=== PATIENT | female | born 1950 | race Caucasian/White ===

== ENCOUNTER 2018-05-16 06:30 | Emergency (ER) | payer BC, MEDICARE ==
[~2018-05-16] VITALS: Ht 152.4 cm; Wt 50.9 kg
[2018-05-16] MEDS ORDERED: SYNTHROID0.075 MG PO (06:59)
[2018-05-16] MEDS ORDERED: PRILOSEC OTC20 MG PO (06:59)
[2018-05-16] MEDS ORDERED: DULCOLAX PO (07:00)
[2018-05-16] MEDS ORDERED: MIRALAX17 GM PO (07:00)
[2018-05-16] MEDS ORDERED: ANUSOL-HC SUPPO25 MG RC (09:05)
[2018-05-16] MEDS ORDERED: FLEET ENEM1 BOT/133 RC (09:05)
[2018-05-16 09:09] VITALS: BP 104/70
== END 2018-05-16 09:08 | disposition home or self-care (01) ==
LOC: ED 06:30
DX: K59.00 Constipation, unspecified (principal); E03.9 Hypothyroidism, unspecified; K64.9 Unspecified hemorrhoids; F17.200 Nicotine dependence, unspecified, uncomplicated; K21.9 Gastro-esophageal reflux disease without esophagitis; Z79.899 Other long term (current) drug therapy

== ENCOUNTER → 2019-04-27 | Outpatient (CLI) | payer MEDICARE ==
[~2019-04-27] MED LIST: ANUSOL-HC SUPPO25 MG RC; DULCOLAX PO; FLEET ENEM1 BOT/133 RC; MIRALAX17 GM PO; PRILOSEC OTC20 MG PO; SYNTHROID0.075 MG PO
== END ==
LOC: RAD 08:22 → MAMMO 08:30
DX: R91.8 Other nonspecific abnormal finding of lung field (principal)

== ENCOUNTER → 2019-04-27 | Outpatient (CLI) | payer MEDICARE | LOC: MAMMO 08:18 | DX: Z12.31 Encounter for screening mammogram for malignant neoplasm of breast (principal) ==

== ENCOUNTER 2019-12-23 09:52 | Emergency (ER) | payer MEDICARE ==
[~2019-12-23] VITALS: Ht 152.4 cm; Wt 53.2 kg
[2019-12-23] MEDS ORDERED: CYTOMEL 5MC5 MCG/TAB PO (10:56)
[2019-12-23 11:13] LABS: BASO # 0.1 (0.02-0.10); EOS # 0.2 (0.04-0.40); HEMOGLOBIN 13.5 g/dL (12.5-16.0); LYMPH# 1.9 (1.50-4.00); MEAN CELL VOLUME 88 fl (78-100); MEAN CORPUSCULAR HEMOGLOBIN 30 pg (27-31); MEAN CORPUSCULAR HGB CONC 34 g/dL (33-37); MEAN PLATELET VOLUME 9.6 fl (7.4-10.4); MONO # 0.6 (0.20-0.80); NEU # 4.7 (1.40-6.50); PLATELET COUNT 270 K/mm3 (130-400); RED BLOOD COUNT 4.56 M/mm3 (4.10-5.30); RED CELL DISTRIBUTION WIDTH 13.1 % (11.5-14.5); WHITE BLOOD COUNT 7.4 K/mm3 (4.8-10.8)
[2019-12-23] MEDS ORDERED: PREDNISONE20 M1 PO (11:50)
[2019-12-23] MEDS ORDERED: AZITHROMYCIN 250MGPK PO (11:50)
[2019-12-23] MEDS ORDERED: PROMETH-CODEIN 65 ML PO (11:50)
[2019-12-23 12:10] VITALS: BP 140/72
== END 2019-12-23 12:10 | disposition home or self-care (01) ==
LOC: ED 09:52
PROVIDERS: Family Medicine
DX: J40 Bronchitis, not specified as acute or chronic (principal); E03.9 Hypothyroidism, unspecified; J84.10 Pulmonary fibrosis, unspecified; F17.210 Nicotine dependence, cigarettes, uncomplicated; Z79.890 Hormone replacement therapy

== ENCOUNTER → 2020-10-08 | Outpatient (CLI) | payer MEDICARE ==
[~2020-10-08] MED LIST changes: +AZITHROMYCIN 250MGPK PO; +CYTOMEL 5MC5 MCG/TAB PO; +PREDNISONE20 M1 PO; +PROMETH-CODEIN 65 ML PO
== END ==
LOC: MAMMO 08:24
DX: Z12.31 Encounter for screening mammogram for malignant neoplasm of breast (principal)

== ENCOUNTER → 2020-10-08 | Outpatient (CLI) | payer MEDICARE | LOC: RAD 08:25 → MAMMO 09:15 → RAD 09:15 | DX: Z13.820 Encounter for screening for osteoporosis (principal); M85.80 Other specified disorders of bone density and structure, unspecified site ==

== ENCOUNTER → 2020-10-21 | Day surgery (SDC) | payer MEDICARE | LOC: MSO 07:35 | DX: Z12.11 Encounter for screening for malignant neoplasm of colon (principal); K57.30 Diverticulosis of large intestine without perforation or abscess without bleeding; Z86.010 Personal history of colon polyps; Z88.2 Allergy status to sulfonamides; F17.210 Nicotine dependence, cigarettes, uncomplicated; K21.9 Gastro-esophageal reflux disease without esophagitis | CPT/HCPCS: 00812; J2704; J7120 ==

== ENCOUNTER → 2022-10-13 | Outpatient (CLI) | payer MEDICARE | LOC: MAMMO 15:15 | DX: Z12.31 Encounter for screening mammogram for malignant neoplasm of breast (principal) ==

== ENCOUNTER → 2022-10-13 | Outpatient (CLI) | payer MEDICARE | LOC: RAD 15:19 → MAMMO 16:00 → RAD 16:00 | DX: M81.0 Age-related osteoporosis without current pathological fracture (principal); M85.80 Other specified disorders of bone density and structure, unspecified site ==

== ENCOUNTER → 2023-10-19 | Outpatient (CLI) | payer MEDICARE | LOC: MAMMO 15:28 | DX: Z12.31 Encounter for screening mammogram for malignant neoplasm of breast (principal) ==

== ENCOUNTER → 2024-01-24 | Outpatient (CLI) | payer MEDICARE | LOC: RAD 15:30 | DX: J32.0 Chronic maxillary sinusitis (principal) ==